=== PATIENT | female | born 1965 | race Hispanic/Latino ===

== ENCOUNTER 2024-07-04 14:58 | Emergency (ER) | payer SELFPAY ==
[~2024-07-04] VITALS: Ht 160 cm; Wt 89.4 kg
--- NOTE | 2024-07-04 15:16 | ERN ---
ED Note History of Present Illness Stated Complaint: ABDOMINAL PAIN Chief Complaint: Abdominal Pain Time Seen by MD: 15:03 Dictation: Patient is a 59-year-old female coming in today with right upper quadrant pain without nausea vomiting diarrhea or fever for the last three days. She states onset was Friday night she states does not change with food, a to [employer] this morning and did not change the pain. No chest pain no back pain no SOB. States she is a diabetic however does not check her blood sugar. Allergies: Coded Allergies: No Known Drug Allergies (Unverified Allergy, Unknown, 07/04/24) Past Medical History Past Medical History: High Cholesterol, Hypertension Surgical History: History: Not Applicable RN Note Reviewed/Agreed w/PFSH: Yes Review of System Dictation CONSTITUTIONAL: Negative except for HPI HEAD/FACE: Negative except for HPI EENT: Negative except for HPI RESPIRATORY: Negative except for HPI GASTROINTESTINAL/ABDOMINAL: Negative except for HPI intermittent right upper quadrant pain tenderness GENITOURINARY: Negative except for HPI MUSCULOSKELETAL: Negative except for HPI INTEGUMENTARY: Negative except for HPI NEUROLOGICAL/PSYCH: Negative except for HPI HEMATOLOGIC/LYMPHATIC: Negative except for HPI All Systems Negative, Except as noted above. 13 point review of systems assessed and all negative except for above. Initial Vital Sign VS Vital Signs Date Time Temp Pulse Resp B/P (MAP) Pulse Ox O2 Delivery O2 Flow Rate FiO2 07/04/24 14:59 98.2 67 16 123/72 97 Room Air Physical Exam Dictation Vital Signs reviewed General Appearance: Alert, oriented x 3, mild acute distress, well developed, no urished. Obese Head and Face: non-traumatic. Eyes: PERRL, pink conjunctivas, eyelid no trauma, anterior chamber with arcus senilis. Ears: Pinnas intact and no signs of trauma or erythema ear canals clear and no discharge TM no erythema Nose: No discharge, no bleeding. Oropharynx: Mouth normal, tongue pink, pharynx clear,no erythema, tonsils no exudates, no abscesses noted, mucous membrane moist Neck: Supple, non-tender, no thyromegaly, no masses, no JVD, no bruits Breast:Deferred Chest:No tenderness, no crepitus, no paradoxical movement, no retractions Lungs:Clear, well-ventilated, symmetric, no rales, no wheezing, no rhonchi, no stridor, good breath sounds bilaterally Heart: Regular rate, regular rhythm, no murmur, no gallops Vascular: no peripheral edema, Abdomen: Soft, positive bowel sounds, nondistended, no guarding, Mild right upper quadrant tenderness negative Cazares's, no rebound, no masses no hepatomegaly, no splenomegaly, no Cazares's sign, no hernias. Rectal: Deferred Genital: Deferred Neurological: Normal speech, motor function intact, sensory function intact Musculoskeletal: Neck nontender, full range of motion, back nontender, full range of motion, Extremities: nontender, full range of motion Skin: Color pink, dry, no turgor, no rash, no lacerations, no abrasions, no contusions. Lymphatic: Deferred Results (Laboratory/Radiology) Laboratory/Radiology Laboratory Tests Test 07/04/24 15:53 07/04/24 18:17 White Blood Count 6.5 K/uL (4.8-10.8) Red Blood Count 4.75 MIL/uL (4.00-5.50) Hemoglobin 14.5 g/dL (12.0-16.0) Hematocrit 43.2 % (36-48) Mean Corpuscular Volume 90.9 fL (79-99) Mean Corpuscular Hemoglobin 30.5 pg (27.0-33.0) Mean Corpuscular Hemoglobin Concent 33.6 g/dL (32.0-36.0) Red Cell Distribution Width 12.5 % (11.0-15.5) Platelet Count 323 K/uL (130-400) Mean Platelet Volume 9.6 fL (7.5-10.5) Immature Granulocyte % (Auto) 0.3 % (0-1) Neutrophils (%) (Auto) 46.0 % (40.0-77.0) Lymphocytes (%) (Auto) 35.8 % (21.0-51.0) Monocytes (%) (Auto) 11.7 % (3.0-13.0) Eosinophils (%) (Auto) 5.7 % (0.0-8.0) Basophils (%) (Auto) 0.5 % (0.0-5.0) Neutrophils # (Auto) 3.0 K/uL (1.8-7.7) Lymphocytes # (Auto) 2.3 K/uL (1.0-4.8) Monocytes # (Auto) 0.8 K/uL (0.1-1.0) Eosinophils # (Auto) 0.37 K/uL (0.00-0.70) Basophils # (Auto) 0.03 K/uL (0.00-0.20) Absolute Immature Granulocyte (auto 0.02 K/uL (0-1) Nucleated Red Blood Cells 0.0 % (0.0-0.19) Sodium Level 140 mmol/L (136-145) Potassium Level 3.9 mmol/L (3.5-5.1) Chloride Level 103 mmol/L (101-111) Carbon Dioxide Level 34 mmol/L (21-32) H Blood Urea Nitrogen 10 mg/dL (7-18) Creatinine 0.8 mg/dL (0.5-1.0) Glomerular Filtration Rate Calc 86 mL/min (>90) Random Glucose 134 mg/dL (70-105) H Total Calcium 8.7 mg/dL (8.5-10.1) Lipase 29 U/L (16-77) Urine Color COLORLESS (YELLOW) Urine Appearance CLEAR (CLEAR) Urine pH 6.5 (5.0-8.0) Urine Specific [place] 1.003 (1.001-1.031) Urine Protein NEGATIVE mg/dL (NEGATIVE) Urine Glucose (UA) NEGATIVE mg/dL (NEGATIVE) Urine Ketones NEGATIVE mg/dL (NEGATIVE) Urine Occult Blood NEGATIVE (NEGATIVE) Urine Nitrate NEGATIVE (NEGATIVE) Urine Bilirubin NEGATIVE mg/dL (NEGATIVE) Urine Urobilinogen 0.2 mg/dL (0.2-1.0) Urine Leukocyte Esterase NEGATIVE Jak/uL US ABDOMINAL RUQ\E\LTD HISTORY: Adominal Pain TECHNIQUE: US ABDOMINAL RUQ\E\LTD. FINDINGS: LIVER: Diffuse increased echogenicity of the liver is seen suggestive of hepatic parenchymal disease, such as hepatic steatosis. Liver measures 22 cm. There is a left hepatic lobe cyst measuring 1.3 cm. GALLBLADDER: No gallstone or wall thickening is seen. CBD: Measures up to 0.6cm. PANCREAS: The visualized pancreas appears within normal limits. The pancreatic was not well seen due to overlying bowel gas. RIGHT KIDNEY: measures 10cm in length. No hydronephrosis or calculi. IMPRESSION: Hepatomegaly with hepatic steatosis. Left hepatic lobe cyst. Upper normal CBD. Labs Reviewed?: Yes ED Course ED Course Orders Procedure Category Date Status Time Cbc With Differential LAB 07/04/24 Complete 15:14 Urinalysis Profile LAB 07/04/24 Complete 15:14 Us Abdominal Ruq\Ltd US 07/04/24 Resulted 15:14 Ketorolac 60mg/2ml PHA 07/04/24 Complete (Toradol 60mg/2ml) 15:30 Lipase LAB 07/04/24 Complete 15:14 Basic Metabolic Panel LAB 07/04/24 Complete 15:14 Current Medications Medications (Trade) Dose Ordered Sig/Laz Route PRN Reason Start Time Stop Time Status Last Admin Dose Admin Ketorolac Tromethamine (toRADol 60MG/ 2ML) 60 mg ONCE ONCE IM 07/04/24 15:30 07/04/24 15:31 DC 07/04/24 15:30 Vital Signs Date Time Temp Pulse Resp B/P (MAP) Pulse Ox O2 Delivery O2 Flow Rate FiO2 07/04/24 14:59 98.2 67 16 123/72 97 Room Air Medical Decision Making MDM MEDICAL DISCHARGE MAKING BASED ON WORKUP FOR RIGHT UPPER QUADRANT PLAIN TO INCLUDE ULTRASOUND AND LABS. LABS NEGATIVE PATIENT HAS A FATTY LIVER DISCHARGED HOME WITH BENTYL INSTRUCTIONS TO FOLLOW A LOW-FAT DIET AND SEE HER PRIMARY CARE DOCTOR DX & DISP Disposition: Discharge Departure Impression: Primary Impression: Fatty liver Additional Impression: Biliary colic symptom Condition: Stable Scripts Dicyclomine HCl (Bentyl) 20 Mg Tab 20 MG PO Q6HPRN PRN for ABDOMINAL CRAMPS /PAIN, #30 TAB Prov: VICKI CALLEJAS [employer] 07/04/24 Additional Instructions: FOLLOW-UP WITH PRIMARY CARE PROVIDER IN 1 TO 2 DAYS. TAKE MEDICATIONS DIRECTED HERE IN THE EMERGENCY ROOM. OKAY TO CONTINUE HOME MEDICATIONS UNLESS OTHERWISE DISCUSSED DURING YOUR VISIT IN THE EMERGENCY ROOM TODAY. RETURN TO YOUR NEAREST EMERGENCY ROOM IF SYMPTOMS WORSEN OR IF THERE IS NO IMPROVEMENT. CALL 911 IF YOU NEED IMMEDIATE ASSISTANCE. TAKE TYLENOL OR MOTRIN [id number] NEEDED AND IF NO CONTRAINDICATIONS ARE PRESENT. INCREASE ORAL HYDRATION. A WOUND CULTURE OR URINE CULTURE WAS ORDERED HERE IN THE EMERGENCY ROOM DEPARTMENT PLEASE FOLLOW-UP WITH PRIMARY CARE PROVIDER AND ADVISE THEM TO GET REPEAT PORTS FROM OUR FACILITY. IF YOU HAD ANY BENIGNO WRAP/SPLINTS THAT WERE APPLIED HERE, PLEASE DO NOT REMOVE THEM UNTIL YOU SEE YOUR PRIMARY CARE OR SPECIALTY. FOLLOW A LOW-FAT DIET AND TAKE BENTYL DIRECTED FOR PAIN. SEE YOUR PRIMARY CARE DOCTOR FOR FOLLOW UP IN THE NEXT 1-2 DAYS. Referrals: SELF,REFERRAL (PCP) Time of Disposition: 20:05 I have reviewed the case, and I agree with, Diagnosis and Plan VICKI CALLEJAS NP Jul 04, 2024 15:16
[2024-07-04] MEDS: ketOROlac 60 MG VIAL (30MG/ML) IM ONE (15:30)
--- NOTE | 2024-07-04 15:49 | HMCIMG ---
US ABDOMINAL RUQ\E\LTD HISTORY: Adominal Pain TECHNIQUE: US ABDOMINAL RUQ\E\LTD. FINDINGS: LIVER: Diffuse increased echogenicity of the liver is seen suggestive of hepatic parenchymal disease, such as hepatic steatosis. Liver measures 22 cm. There is a left hepatic lobe cyst measuring 1.3 cm. GALLBLADDER: No gallstone or wall thickening is seen. CBD: Measures up to 0.6cm. PANCREAS: The visualized pancreas appears within normal limits. The pancreatic was not well seen due to overlying bowel gas. RIGHT KIDNEY: measures 10cm in length. No hydronephrosis or calculi. IMPRESSION: Hepatomegaly with hepatic steatosis. Left hepatic lobe cyst. Upper normal CBD.
[2024-07-04 16:09] LABS: BASOPHILS # (AUTO) 0.03 K/uL (0.00-0.20); BASOPHILS % (AUTO) 0.5 % (0.0-5.0); EOSINOPHILS # (AUTO) 0.37 K/uL (0.00-0.70); EOSINOPHILS % (AUTO) 5.7 % (0.0-8.0); HEMATOCRIT 43.2 % (36-48); IMMATURE GRANULOCYTE ABSOLUTE 0.02 K/uL (0-1); LYMPHOCYTES # (AUTO) 2.3 K/uL (1.0-4.8); LYMPHOCYTES % (AUTO) 35.8 % (21.0-51.0); MEAN CORPUSCULAR HEMOGLOBIN 30.5 pg (27.0-33.0); MEAN CORPUSCULAR HGB CONC 33.6 g/dL (32.0-36.0); MEAN CORPUSCULAR VOLUME 90.9 fL (79-99); MONOCYTES # (AUTO) 0.8 K/uL (0.1-1.0); MONOCYTES % (AUTO) 11.7 % (3.0-13.0); PLATELET COUNT (AUTO) 323 K/uL (130-400); RED BLOOD CELL COUNT(AUTO) 4.75 MIL/uL (4.00-5.50); RED CELL DISTRIBUTION WIDTH 12.5 % (11.0-15.5); WHITE BLOOD COUNT (AUTO) 6.5 K/uL (4.8-10.8)
[2024-07-04 16:17] LABS: CREATININE 0.8 mg/dL (0.5-1.0); POTASSIUM 3.9 mmol/L (3.5-5.1)
[2024-07-04 18:37] LABS: APPEARANCE,URINE CLEAR (CLEAR); BILIRUBIN,URINE NEGATIVE (NEGATIVE); COLOR,URINE COLORLESS (YELLOW); GLUCOSE, URINE (UA) NEGATIVE (NEGATIVE); KETONES,URINE NEGATIVE (NEGATIVE); LEUKOCYTE ESTERASE ,URINE NEGATIVE Leu/uL (NEGATIVE); NITRATE,URINE NEGATIVE (NEGATIVE); OCCULT BLOOD,URINE NEGATIVE (NEGATIVE); PH,URINE 6.5 (5.0-8.0); PROTEIN,URINE NEGATIVE (NEGATIVE); UROBILINOGEN,URINE 0.2 mg/dL (0.2-1.0)
[2024-07-04 18:41] LABS: ADD UA MICROSCOPIC NO
[2024-07-04] MEDS ORDERED: DICY20TA2 PO (20:06)
[2024-07-04 21:21] VITALS: BP 125/81; PULSE 73; RESP 19; TEMP 98.3; O2SAT 99
== END 2024-07-04 21:32 | disposition home or self-care (01) ==
LOC: EDH 14:58
DX: K76.0 Fatty (change of) liver, not elsewhere classified (principal); K80.50 Calculus of bile duct without cholangitis or cholecystitis without obstruction; E78.00 Pure hypercholesterolemia, unspecified; I10 Essential (primary) hypertension
CPT/HCPCS: 99285; 96374; 76705; 80048; 83690; 85025; 81003; 36415; J1885